=== PATIENT | female | born 1990 | race Caucasian/White ===

== ENCOUNTER 2020-04-13 21:18 | Emergency (ER) | payer OTHER, SELFPAY ==
[2020-04-13 21:24] VITALS: BP 163/101; PULSE 87; RESP 18; TEMP 36.3; O2SAT 98; BMI 57.6
[2020-04-13 21:58] LABS: Basophils # 0.1 10^3/uL (0.0-0.1); Basophils % 0.4 %; Eosinophils # 0.3 10^3/uL (0.0-0.8); Eosinophils % 2.2 %; Hematocrit 41.9 % (37.0-47.0); Hemoglobin 13.8 g/dL (11.5-15.3); Lymphocytes % 25.6 %; Mean Corpuscular HGB Conc 32.9 g/dL (30.0-36.0); Mean Corpuscular Hemoglobin 29.7 pg (28.0-34.0); Mean Corpuscular Volume 90.1 fL (81-99); Mean Platelet Volume 9.5 fL (7.4-10.4); Monocytes # 0.9 10^3/uL (0.2-0.9); Monocytes % 7.4 %; Neutrophils # 7.5 10^3/uL (1.8-7.7); Neutrophils % 63.9 %; Nucleated Red Blood Cells % 0 %; Platelet Count 367 10^3/cmm (130-400); Red Blood Count 4.65 10^6/uL (4.1-5.3); Red Cell Distribution Width 11.4 % (12.1-15.1); White Blood Count 11.7 10^3/uL (4.0-10.0)
[2020-04-13 22:11] LABS: Alanine Aminotransferase 18 U/L (0-33); Albumin Level 4.3 g/dL (3.5-5.2); Alkaline Phosphatase 57 IU/L (35-105); Anion Gap 18.9 (5-19); Aspartate Amino Transferase 22 U/L (0-32); Blood Urea Nitrogen 10 mg/dL (6-20); Calcium 10.3 mg/dL (8.5-10.5); Carbon Dioxide 22 mmol/L (22-29); Chloride 103 mmol/L (98-107); Globulin 3.3 g/dL (1.3-4.6); Glucose 119 mg/dL (65-115); Lipase 29 U/L (13-60); Osmolality Calculated 287 mOsm/kg (285-295); Potassium 3.9 mmol/L (3.5-5.1); Sodium 140 mmol/L (136-145); Total Bilirubin 0.2 mg/dL (0.15-1.2); Total Protein 7.6 g/dL (6.6-8.7)
[2020-04-13 22:23] LABS: HCG, Serum Qual Negative (Negative)
[2020-04-14 01:35] VITALS: BP 159/80; PULSE 77; RESP 18; O2SAT 98
[2020-04-14 01:44] LABS: Add Urine Microscopic? YES; Bacteria Urine 2+; Bilirubin Urine Neg (NEGATIVE); Blood Urine 2+ (Negative); Glucose Urine UA Norm (Normal); Ketones Urine Negative (Negative); Leukocyte Esterase Urine Negative (Negative); Nitrate Urine Negative (Negative); Protein Urine Neg (Negative); RBC Urine 0-4 /hpf (0-2); Urine Appearance SL Hazy (CLEAR); Urine Color Yellow (Yellow); Urobilinogen Urine Norm (Negative); WBC Urine 0-4 /hpf (0-5); pH Urine 5 (5-7)
[2020-04-14 01:45] LABS: Add Urine Culture? Yes; Mucus Urine 1+
--- NOTE | 2020-04-14 02:07 | CTR_ITS ---
PROCEDURE INFORMATION: Exam: CT Abdomen And Pelvis Without Contrast Exam date and time: 04/14/2020 2:18 AM Age: 29 years old Clinical indication: Abdominal pain; Flank; Left; Additional info: Flank pain TECHNIQUE: Imaging protocol: Computed tomography of the abdomen and pelvis without contrast. Radiation optimization: All CT scans at this facility use at least one of these dose optimization techniques: automated exposure control; mA and/or kV adjustment per patient size (includes targeted exams where dose is matched to clinical indication); or iterative reconstruction. COMPARISON: No relevant prior studies available. RADIATION DOSE METRICS: Total DLP: 2012.37 mGy-cm FINDINGS: Liver: Normal. No mass. Gallbladder and bile ducts: Status post cholecystectomy. Pancreas: Normal. No ductal dilation. Spleen: Normal. No splenomegaly. Adrenals: Normal. No mass. Kidneys and ureters: There is a punctate nonobstructing left renal calculus seen in the upper pole. There is a 3.4 mm minimally obstructing distal left ureteral calculus seen at the level of the ureterovesical junction. Stomach and bowel: Unremarkable. No obstruction. No mucosal thickening. Appendix: The appendix is visualized and is normal in configuration. Intraperitoneal space: Unremarkable. No free air. No significant fluid collection. Vasculature: Unremarkable. No abdominal aortic aneurysm. Lymph nodes: Unremarkable. No enlarged lymph nodes. Bladder: Unremarkable as visualized. Reproductive: Unremarkable as visualized. Bones/joints: Unremarkable. No acute fracture. Soft tissues: Unremarkable. CT/CT kidney stone [id number] IMPRESSION: 1. Minimally obstructing 3.4 mm calculus at the level of the left ureterovesical junction. 2. Punctate nonobstructing left renal calculus Radiation Dose CTDIVOL = (mGy): DLP = 2012.37 (mGy-cm)
[2020-04-14] MEDS: sodium chloride 0.9% 1,000 ML 999 ML IV (02:58)
[2020-04-14] MEDS: ondansetron 2 mg/ML SDV 2 mL 4 MG IVP (02:58)
[2020-04-14 02:59] VITALS: RESP 18; O2SAT 99
[2020-04-14] MEDS: HYDROmorphone 1 mg/mL INJ 1 mL IVP (02:59)
[2020-04-14 03:28] VITALS: BP 135/87; PULSE 78; RESP 18; O2SAT 98
[2020-04-14 04:03] VITALS: BP 142/100; PULSE 74; RESP 18; O2SAT 97
--- NOTE | 2020-04-14 17:18 | ED_ITS ---
HPI - Abdominal Pain General: Chief Complaint: Abdominal Pain Stated Complaint: l side back and abd pain Time Seen by Provider: 04/14/20 02:06 History of Present Illness: HPI narrative: 29-year-old healthy female presents with left-sided flank pain and abdominal pain that started today. She has been nauseated. The pain keeps getting worse she says. It comes and goes to some degree, but is mostly constant. Denies fever. Noticed that her urine looks a little more yellow . No adriana blood MD elicited complaint: abdominal pain and flank pain Pertinent past history: none Onset (ago): hour(s) Pain Consistency: constant Location: L flank and Suprapubic Severity: moderate Quality: stabbing and aching Radiation: LLQ, suprapubic and L flank Migration to: no migration Exacerbating factors: movement Relieving factors: nothing Associated Symptoms: Reports nausea; Denies diarrhea, fever(s), hematuria, loose stools and vomiting Related Data: Date of Last Menstrual Period: 04/02/20 Review of Systems Const: Denies: fever(s) Eyes: Denies: change in vision or blurry vision ENMT: Denies: swelling of lips/tongue, change in hearing, epistaxis, post nasal drip or sinus pain Card: Denies: chest pain, palpitations, irregular heart rhythm or swelling of feet/ankles Resp: Denies: dyspnea, productive cough, non-productive cough or wheezing GI: Reports: nausea; Denies: vomiting or diarrhea : Denies: hematuria Musc: Denies: neck pain, back pain or joint warmth Skin/Breast: Denies: rash, pruritus or erythema Neuro: Denies: headache(s), dizziness or vertigo Psych: Denies: anxiety PFSH ED PFSH: Social History Smoking and tobacco status: never smoked Female Reproductive History: Date of last menstrual period: 04/02/20 : 0 Physical Exam Const: GENERAL APPEARANCE: well developed ORIENTATION/CONSCIOUSNESS: Yes oriented to person, Yes oriented to place and Yes oriented to time HENMT: COMMON NORMALS: normocephalic, external ears normal and Normal external nose present HEAD & SCALP: normocephalic FACE & SINUS: normal facial exam NOSE: Normal external nose present and No nasal discharge present EXTERNAL EAR: Yes external ears normal MOUTH: tongue normal Eye: COMMON NORMALS: Equal, round and reactive pupils present, EOMs intact bilaterally and conjunctivae normal EYELID: eyelids normal CONJUNCTIVA: Yes conjunctivae normal PUPIL: Yes Equal, round and reactive pupils present Neck/C-Spine: GENERAL: No tracheal deviation Chest: COMMONS NORMALS: normal inspection of the chest CHEST: No tenderness Resp: COMMON NORMALS: clear to auscultation bilaterally EFFORT & INSPECTION: No tachypneic, No respiratory distress, No retractions, No uses accessory muscles and No tracheal deviation AUSCULTATION: clear to auscultation bilaterally, no rhonchi, no wheezes and lung sounds not diminished Cardio: COMMON NORMALS: regular rate and regular rhythm RATE: regular rate RHYTHM: regular rhythm HEART SOUNDS: no murmurs PERIPHERAL PULSES: radial pulses present GI: INSPECTION: No abdominal distension AUSCULTATION: No Hyperactive bowel sounds present and No Hypoactive bowel sounds present PALPATION: Yes Tenderness to palpation present (GI) (Left flank) Details: LLQ, No Guarding due to palpation present (GI) and No Rigid due to palpation PERCUSSION: no dullness to percussion and no tympanic to percussion : BLADDER/KIDNEY EXAM: Yes CVA tenderness on the left Back/Pelvis: GENERAL BACK: Yes CVA tenderness Neuro: SENSORIUM/ORIENTATION: Yes oriented to person, Yes oriented to place and Yes oriented to time Psych: COMMON NORMALS: mental status grossly normal Skin: COMMON NORMALS: no rashes or lesions noted GENERAL SKIN EXAM: no rashes or lesions noted Course Vital Signs: Vital signs: Vital Signs Temperature 97.4 F L 04/13/20 21:24 Pulse Rate 74 04/14/20 04:03 Respiratory Rate 18 04/14/20 04:03 Blood Pressure 142/100 04/14/20 04:03 Pulse Oximetry 97 04/14/20 04:03 MDM - Abdominal Pain MDM Narrative: Medical decision making narrative: White count mildly elevated. No evidence of urinary tract infection. She does have a 3.4 mm minimally obstructive stone in the left UVJ. Her pain is significantly improved. She will be treated with pain medication and antiemetics with lots of fluids. Close outpatient follow-up. Lab Data: Labs: Lab Results 04/13/20 04/13/20 04/13/20 Range/Units 21:15 21:15 21:15 WBC 11.7 H (4.0-10.0) 10^3/ uL RBC 4.65 (4.1-5.3) 10^6/u L Hgb 13.8 (11.5-15.3) g/dL Hct 41.9 (37.0-47.0) % MCV 90.1 (81-99) fL MCH 29.7 (28.0-34.0) pg MCHC 32.9 (30.0-36.0) g/dL RDW 11.4 L (12.1-15.1) % Plt Count 367 (130-400) 10^3/c mm MPV 9.5 (7.4-10.4) fL Neut % (Auto) 63.9 % Lymph % (Auto) 25.6 % Petroleum % (Auto) 7.4 % Eos % (Auto) 2.2 % Baso % (Auto) 0.4 % Neut # (Auto) 7.5 (1.8-7.7) 10^3/u L Lymph # (Auto) 3.0 (0.8-4.8) 10^3/u L Petroleum # (Auto) 0.9 (0.2-0.9) 10^3/u L Eos # (Auto) 0.3 (0.0-0.8) 10^3/u L Baso # (Auto) 0.1 (0.0-0.1) 10^3/u L Nucleated RBC % (a uto) 0 % Nucleated RBCs # 0.0 /100WBC Sodium 140 (136-145) mmol/L Potassium 3.9 (3.5-5.1) mmol/L Chloride 103 (98-107) mmol/L Carbon Dioxide 22 (22-29) mmol/L Anion Gap 18.9 (5-19) BUN 10 (6-20) mg/dL Creatinine 0.6 (0.5-0.9) mg/dL GFR Calculation 119.0 (90-130) mL/min Glucose 119 H (65-115) mg/dL Calculated Osmolal ity 287 (285-295) mOsm/k g Calcium 10.3 (8.5-10.5) mg/dL Total Bilirubin 0.2 (0.15-1.2) mg/dL AST 22 (0-32) U/L ALT 18 (0-33) U/L Alkaline Phosphata se 57 (35-105) IU/L Total Protein 7.6 (6.6-8.7) g/dL Albumin 4.3 (3.5-5.2) g/dL Globulin 3.3 (1.3-4.6) g/dL Lipase 29 (13-60) U/L HCG, Qual Negative (Negative) Urine Color (Yellow) Urine Appearance (CLEAR) Urine pH (5-7) Ur Specific Gravit y (1.005-1.030) Urine Protein (Negative) Urine Glucose (UA) (Normal) Urine Ketones (Negative) Urine Blood (Negative) Urine Nitrate (Negative) Urine Bilirubin (NEGATIVE) Urine Urobilinogen (Negative) mg/dL Ur Leukocyte Jenelle ase (Negative) Urine RBC (0-2) /hpf Urine WBC (0-5) /hpf Ur Squamous Epith Cells (0-5) Urine Bacteria (NONE) Urine Mucus 04/14/20 Range/Units 01:32 WBC (4.0-10.0) 10^3/ uL RBC (4.1-5.3) 10^6/u L Hgb (11.5-15.3) g/dL Hct (37.0-47.0) % MCV (81-99) fL MCH (28.0-34.0) pg MCHC (30.0-36.0) g/dL RDW (12.1-15.1) % Plt Count (130-400) 10^3/c mm MPV (7.4-10.4) fL Neut % (Auto) % Lymph % (Auto) % Petroleum % (Auto) % Eos % (Auto) % Baso % (Auto) % Neut # (Auto) (1.8-7.7) 10^3/u L Lymph # (Auto) (0.8-4.8) 10^3/u L Petroleum # (Auto) (0.2-0.9) 10^3/u L Eos # (Auto) (0.0-0.8) 10^3/u L Baso # (Auto) (0.0-0.1) 10^3/u L Nucleated RBC % (a uto) % Nucleated RBCs # /100WBC Sodium (136-145) mmol/L Potassium (3.5-5.1) mmol/L Chloride (98-107) mmol/L Carbon Dioxide (22-29) mmol/L Anion Gap (5-19) BUN (6-20) mg/dL Creatinine (0.5-0.9) mg/dL GFR Calculation (90-130) mL/min Glucose (65-115) mg/dL Calculated Osmolal ity (285-295) mOsm/k g Calcium (8.5-10.5) mg/dL Total Bilirubin (0.15-1.2) mg/dL AST (0-32) U/L ALT (0-33) U/L Alkaline Phosphata se (35-105) IU/L Total Protein (6.6-8.7) g/dL Albumin (3.5-5.2) g/dL Globulin (1.3-4.6) g/dL Lipase (13-60) U/L HCG, Qual (Negative) Urine Color Yellow (Yellow) Urine Appearance Sl hazy (CLEAR) Urine pH 5 (5-7) Ur Specific Gravit y 1.030 (1.005-1.030) Urine Protein Neg (Negative) Urine Glucose (UA) Norm (Normal) Urine Ketones Negative (Negative) Urine Blood 2+ H (Negative) Urine Nitrate Negative (Negative) Urine Bilirubin Neg (NEGATIVE) Urine Urobilinogen Norm (Negative) mg/dL Ur Leukocyte Jenelle ase Negative (Negative) Urine RBC 0-4 H (0-2) /hpf Urine WBC 0-4 H (0-5) /hpf Ur Squamous Epith Cells 10-15 H (0-5) Urine Bacteria 2+ H (NONE) Urine Mucus 1+ Discharge Plan Discharge Patient Disposition: Home, Self-Care Clinical Impression: Ureterolithiasis Condition: Stable Prescriptions: New Percocet 7.5-325 mg tablet 1 tab PO Q6H PRN (Reason: pain) Qty: 14 RF: 0 Zofran 4 mg tablet 4 mg PO Q6H PRN (Reason: nausea and vomiting) Qty: 10 RF: 0 Discharge Orders: Discharge Order (Routine); Ordered 04/14/20 Ordered By: Yohannes Brown Referrals: Serjio Willingham MD [Physician] - 4-7 days Jaelyn Gregory FNP [Primary Care Provider] - 4-7 days Discharge Diet: Advance as tolerated Discharge Activity: Increase activity as tolerated Patient Instructions: Kidney Stones (ED) Activity Restrictions/Additional Instructions: Return for fever greater than 100, worsening pain despite treatment, vomiting liquids or medications, other concerning symptoms. Discharge Date/Time: 04/14/20 04:05 Coding Level of Care Code ED Photoengraving Apprentice for Martín Swan
--- NOTE | 2020-04-16 14:36 | DCPLANNER ---
assistant office manager had message to schedule a follow up appointment for patient with Dr. Willingham. assistant office manager called the office of Dr. Willingham, spoke with Salena, gave clinic patients information. assistant office manager was told that patients information would be printed and reviewed. Clinic will call patient with appointment information.
--- NOTE | 2020-04-17 08:24 | DCPLANNER ---
Patient has a follow up appointment scheduled for Friday, April 17, 2020 at 2:[address] Willingham. Clinic will call patient with appointment information.
--- NOTE | 2020-04-27 14:07 | DCPLANNER ---
Patient had an appointment scheduled for 04.17.[address] Willingham. Patient did attend the appointment.
== END 2020-04-14 04:05 | disposition home or self-care (01) ==
PROVIDERS: Physician Assistant; Emergency Provider Emergency Medicine; PCP Nurse Practitioner
DX: N20.1 Calculus of ureter (principal)
CPT/HCPCS: 12345; 74176; 80053; 81001; 83690; 84703; 85025; 87086; 96361; 96374; 96375; 99283; J1170; J2405; J7030

== ENCOUNTER 2020-04-17 13:09 | Outpatient (CLI) | payer OTHER, SELFPAY ==
--- NOTE | 2020-04-17 13:16 | XR_ITS ---
WS: [id number] XR KUB [id number] REASON FOR EXAM: ureteral calculus FINDINGS: No evidence of renal parenchymal calcification. The ureter areas and bladder show no definite signs of calcification. Nonspecific abdominal findings. XR/XR KUB [id number] IMPRESSION: No ureteral calculi are seen by radiographic means.
== END 2020-04-17 13:10 | disposition home or self-care (01) ==
LOC: RAD 13:13
PROVIDERS: PCP Nurse Practitioner; Visit Provider Urology
DX: N20.1 Calculus of ureter (principal)
CPT/HCPCS: 74018; 81001

== ENCOUNTER 2020-04-25 12:53 | Outpatient (CLI) | payer OTHER, SELFPAY ==
--- NOTE | 2020-04-25 13:00 | XRR_ITS ---
PROCEDURE INFORMATION: Exam: XR Abdomen, 1 View Exam date and time: 04/25/2020 1:29 PM Age: 29 years old Clinical indication: Condition or disease; Kidney or ureter condition; Calculus (stone) in kidney; Additional info: Stones TECHNIQUE: Imaging protocol: XR of the abdomen. Views: Frontal supine view of the abdomen. 1 View. COMPARISON: CT kidney stone [id number] 04/14/2020 2:27 AM FINDINGS: Gastrointestinal tract: Normal. No bowel dilation. There is scattered colonic fecal stasis is seen. Bones/joints: Unremarkable. Negative for urinary tract stones XR/XR KUB [id number] IMPRESSION: No acute findings.
== END 2020-04-25 12:54 | disposition home or self-care (01) ==
LOC: RAD 12:55
PROVIDERS: PCP Nurse Practitioner; Visit Provider Urology
DX: N20.0 Calculus of kidney (principal)
CPT/HCPCS: 74018; 81001

== ENCOUNTER 2020-05-02 14:02 | Outpatient (CLI) | payer OTHER, SELFPAY ==
--- NOTE | 2020-05-02 14:15 | XRR_ITS ---
PROCEDURE INFORMATION: Exam: XR Abdomen, 1 View Exam date and time: 05/02/2020 2:19 PM Age: 29 years old Clinical indication: Condition or disease; Kidney or ureter condition; Calculus (stone) in ureter; Additional info: Stone lt ureter f/u TECHNIQUE: Imaging protocol: XR of the abdomen. Views: Frontal supine view of the abdomen. 1 View. COMPARISON: CR XR KUB [id number] 04/25/2020 1:26 PM and 04/14/2020 CT abdomen/pelvis. FINDINGS: Gastrointestinal tract: Normal. No bowel dilation. Organs: Suspect a persistent small 2-3 mm left UVJ region stone, unchanged from prior 04/14/2020 CT scan. Bones/joints: Unremarkable. XR/XR KUB [id number] IMPRESSION: Suspect a persistent small 2-3 mm left UVJ region stone, unchanged from prior 04/14/2020 CT scan.
== END 2020-05-02 14:03 | disposition home or self-care (01) ==
LOC: RAD 14:05
PROVIDERS: PCP Nurse Practitioner; Visit Provider Urology
DX: N20.1 Calculus of ureter (principal)
CPT/HCPCS: 74018

== ENCOUNTER 2020-05-03 11:00 | Day surgery (SDC) | payer OTHER, SELFPAY ==
[2020-05-02 15:59] VITALS: BMI 45.3
[2020-05-02 16:06] VITALS: BMI 45.3
[2020-05-03] VITALS (11 sets, daily range): BP systolic 113–156; BP diastolic 58–85; PULSE 63–88; RESP 18; TEMP 36.9–37; O2SAT 96–100
--- NOTE | 2020-05-03 | SCC_ITS ---
Procedure Done: 1. Cystoscopy, left retrograde ureteropyelogram 2. Left ureteroscopy stent placement 14.4 seconds of fluoroscopic guidance, for a cumulative dose of 5.75 mGy, was provided to Dr. Willingham by the radiology department. C-arm images of the abdomen were saved for the patient's permanent record. [facility]
--- NOTE | 2020-05-03 11:11 | SC_ITS ---
WS: [id number] INTRAOPERATIVE TECHNIQUE: 5 Spot fluoroscopic images for intraoperative purposes. FLUOROSCOPY TIME: 14.4 seconds CLINICAL INFORMATION: Left ureteral calculus COMPARISON: None. FINDINGS: Retrograde ureteroscopy with deployment of left double-J ureteral stent. SC/C-arm FL for Urology IMPRESSION: Images obtained for intraoperative purposes.
[2020-05-03] MEDS: sodium chloride 0.9% 1,000 ML 30 ML IV (11:26)
--- NOTE | 2020-05-03 11:26 | ANES.PREANE2 ---
Pre-Anesthetic Assessment Pre-Anesthetic Assessment: Height/Weight: Height 1.57 m Weight 112.491 kg Temp Pulse Resp BP Pulse Ox 98.5 F 84 18 156/74 97 05/03/20 11:15 05/03/20 11:15 05/03/20 11:15 05/03/20 11:15 05/03/20 11:15 Preop Diagnosis: Refractory left distal ureteral symptomatic stone Proposed Procedure: Operation Date: 05/03/20 12:20 Proposed Procedures p Cystoscopy 24789 30128 N20.9(Not Applicable) - Serjio Willingham MD s Retrograde Pyelogram(Left) - Serjio Willingham MD s Flexible Ureteroscopy(Not Applicable) - MD rogerio Cooper Laser Lithotripsy(Not Applicable) - Serjio Willingham MD s Ureteral Stent Placement(Not Applicable) - Serjio Willingham MD Familial anesthetic complications: none Was Beta Celena taken within 24 hours: N/A Last intake: Intake Last Liquid Date 05/03/20 Last Liquid Time 06:50 Last Solid Date 05/02/20 Social: Social History: No alcohol and No tobacco Exam: Pre-Anes Outpt Exam: alert, oriented x 3, clear to auscultation bilaterally and regular rate & rhythm Airway: Cervical ROM: WNL MP: 2 Dentition: Full Pulmonary: Pulmonary: None reported CV/HEM: CV/HEM: None reported : : None reported Hepatic: Hepatic: None reported GI: GI: None reported Metabolic: Metabolic: Morbid obesity Musc/skel: Musc/skel: None reported Neuropsych: Neuropsych: None reported Anesthetic Plan: ASA status: 1 Anesthesia: General Risk of > 500 ml blood loss (7ml/kg in children): No PFSH Anesthesia PFSH: Medical History (Updated 05/02/20 @ 15:47 by Serjio Willingham MD) Flank pain Left ureteral calculus Urolithiasis Surgical History History of tonsillectomy and adenoidectomy Hx of cholecystectomy Family History Other Diabetes Social History Smoking and tobacco status: never smoked Alcohol intake: current Alcohol intake frequency: holidays/special occasions only Adopted: No Caregiver/support person: No Lives independently: Yes Marital status: Single Current occupational status: employed History of recent travel: No Current gender identity: Female Female Reproductive History: Date of last menstrual period: 04/02/20 Data Anesthesia Cardiac Studies: No Data to Display
--- NOTE | 2020-05-03 12:46 | P.HPUD_ITS ---
Surgery/Procedure H&P Update DATE OF PROCEDURE: May 03, 2020 DATE H&P PERFORMED: 05/02/20 H&P UPDATE INFORMATION: I have reviewed H&P completed within last 30 days, No changes to prior documentation and H&P is in [facility] EMR on date indicated PREOP DIAGNOSIS: Refractory left distal ureteral symptomatic stone PLANNED PROCEDURE: Operation Date: 05/03/20 12:20 Proposed Procedures p Cystoscopy 51763 59160 N20.9(Not Applicable) - MD rogerio Cooper Retrograde Pyelogram(Left) - MD rogerio Cooper Flexible Ureteroscopy(Not Applicable) - MD rogerio Cooper Laser Lithotripsy(Not Applicable) - MD rogerio Cooper Ureteral Stent Placement(Not Applicable) - Serjio Willingham MD
--- NOTE | 2020-05-03 12:47 | PM.OP ---
Operative Report Date of procedure: May 03, 2020 Pre-op Diagnosis: Refractory left distal ureteral symptomatic stone Associated Problem List Diagnoses (1) Flank pain: (2) Left ureteral calculus:
[2020-05-03] MEDS: levofloxacin-dextrose 5 % 500 MG/100 ML PREMIX 100 MG IV (12:56)
[2020-05-03 12:58] LABS: OR HCG Qualitative Urine Negative (Negative)
[2020-05-03] MEDS: iohexol 300 mg/mL 50 mL Btl (OR ONLY) XX (13:27)
--- NOTE | 2020-05-03 13:37 | P.OP_ITS ---
Operative Report Date of procedure: May 03, 2020 Pre-op Diagnosis: Refractory left distal ureteral symptomatic stone Post-op Diagnosis: Spontaneous passage of the left distal ureteral stone Procedure Done: 1. Cystoscopy, left retrograde ureteropyelogram 2. Left ureteroscopy stent placement Implants: 4.7 x 26 cm double-pigtail stent with string Specimens removed/disposition: None Pathology: none sent Surgeon: Maulik Anesthesia: General Estimated blood loss: Minimal Urine output: Not measured Complications: None Findings: 1. The stone had spontaneously passed. 2. The left ureteral orifice intramural tunnel were significantly inflamed when compared to the right side. The distal ureter was very inflamed upon inspection and the ureter just proximal to the intramural tunnel was dilated all the way to the kidney. Condition: stable Disposition: PACU Brief History: Bailee is a delightful 29-year-old white female recently conner gnosed several weeks ago with a left distal ureteral stone with obstructive changes and moderate symptomatology. The stone was located at the UVJ and it was felt to be a really good candidate for spontaneous passage with conservative therapy and therefore she was managed with pain medication, Flomax, time and fluids. On follow-up KUB there was a calcification suspicious for the location of the st one that was persistent. There was a hint on 1 image and the sequence of images of possible slight distal migration but it was never beyond that point. She continued to have intermittent left renal colic even as of yesterday and had significant lower urinary tract symptoms consistent with irritation related to stone in the intramural tunnel. While it was felt that the stone would pass because of the persistence and the persistence of her symptoms as well as an impending vacation she elected to proceed with endoscopy. She was diligent in straining her urine. Procedure: After routine preoperative evaluation examination and obtaining of informed consent she was taken to the operating suite on 05/03/2020 where general anesthesia was administered without difficulty after appropriate timeout was performed, SCDs confirmed to be functioning, preoperative antibiotics administered, beta-benjamin protocol confirmed. Prepped and draped in usual sterile fashion in dorsolithotomy position pain careful attention to avoiding pressure points. The 21 Moldovan cystoscope with 30 degree lens was introduced into the urethral meatus and advanced into the bladder under videoscopy. The bladder was systematically examined. No stone was seen. The bladder was carefully inspected and there was a dramatic difference between the right ureteral orifice and intramural tunnel in the left. The left showed significant inflammatory changes with heaped mucosa consistent with intramural process and consistent with location of the left distal ureteral stone for extended period of time. An 8 Moldovan cone-tipped catheter was intubated to the left ureteral orifice and a left retrograde ureteropyelogram was performed showing narrowing of the ureter in the intramural tunnel and proximal to that moderate dilation extending to the proximal ureter. No clear-cut filling defect could be identified at the transition from narrow to dilated. A flexible tip guidewire was then easily advanced up the left ureter under fluoroscopic monitoring. No stone was seen. The wire passed into the area of the renal pelvis without difficulty. The distal ureter was then dilated with a 15 Moldovan 4 cm balloon with no waist at 4 sharda of pressure. Wire secured to the drapes as a safety wire and a 7.5 Moldovan offset semirigid ureteroscope was then advanced next to the wire up the ureter. The distal ureter was significantly inflamed and the ureter proximal to that was moderately dilated. No stone was identified. The scope was passed all the way to the UPJ and again no stone was seen. Scope was passed twice and inspected on withdrawal both times. The distal ureter was carefully inspected to make sure there was no intramural transmigration of the stone. After careful evaluation of the ureter it was determined that the stone had spontaneously passed. The bladder was reinspected and again no stone was seen. Cystoscope was then backloaded over the guidewire and a 4.7 x 26 cm double- pigtail stent with string attached distally was passed without difficulty over the guidewire through the cystoscope into appropriate position as confirmed via fluoroscopy and cystoscopy. Stent was draining urine. Bladder was drained and the procedure completed. She tolerated procedure well without complications and was awakened in the operating room and returned to the recovery in stable condition. PLANS: 1. Maintain stent for passive dilation of the dilated distal ureter over the weekend. Since she has a string she can withdraw the stent herself on Thursday morning and let us know how things go.
[2020-05-03] MEDS: fentaNYL 50 mcg/mL INJ 2mL IVP (13:57)
[2020-05-03] MEDS: ondansetron 2 mg/ML SDV 2 mL 4 MG IVP (14:02)
--- NOTE | 2020-05-03 14:04 | SUR.PHASEI ---
PT HAD SUDDEN ONSET OF SEVERE RT RIB PAIN NOT ALLIEVEATED WITH CHANGE OF POSITION, PT C/O OF NAUSEA WITH PAIN AND DIAPHORETIC, SEE MEDS GIVEN EARLIER PT NOW BETTER, NAUSEA BETTER, PAIN BETTER AT 3
== END 2020-05-03 15:22 | disposition home or self-care (01) ==
PROVIDERS: Anesthesiology; PCP Nurse Practitioner; Visit Provider Urology
PROC: 0TJB8ZZ Inspection of Bladder, Via Natural or Artificial Opening Endoscopic (ICD-10-PCS; CPT 52000; principal; 2020-05-03 12:00)
PROC: (CPT 74420; 2020-05-03 12:00)
PROC: 0TJ98ZZ Inspection of Ureter, Via Natural or Artificial Opening Endoscopic (ICD-10-PCS; CPT 52351; 2020-05-03 12:00)
PROC: (CPT 50605; 2020-05-03 12:00)
DX: N20.1 Calculus of ureter (principal); E66.01 Morbid (severe) obesity due to excess calories; Z68.42 Body mass index [BMI] 45.0-49.9, adult
CPT/HCPCS: 52332; 52351; 12345; 76000; 81025; 84703; 96365; C1725; C2625; J1100; J1956; J2001; J2405; J2704; J2710; J3010; J3490; J7030

== ENCOUNTER 2020-05-22 07:06 | Outpatient (CLI) | payer OTHER, SELFPAY ==
--- NOTE | 2020-05-22 07:18 | XRR_ITS ---
PROCEDURE INFORMATION: Exam: XR Abdomen, 1 View Exam date and time: 05/22/2020 7:27 AM Age: 29 years old Clinical indication: Condition or disease; Kidney or ureter condition; Calculus (stone) in ureter; Prior surgery; Surgery date: <1 month; Surgery type: Renal stent; Patient HX: Follow up ureteral calculus. Previous c-arm 05/03/20 , XR 05/02/20 TECHNIQUE: Imaging protocol: XR of the abdomen. Views: Frontal supine view of the abdomen. 1 View. COMPARISON: CR XR KUB [id number] 05/02/2020 2:16 PM FINDINGS: Gastrointestinal tract: Obscuration of the renal fossa by prominent bowel gas and stool. Colonic dilatation and prominent stool. Intraperitoneal space: Incomplete visualization of the superior most abdomen. Bones/joints: No acute osseous pathology. Other findings: If underlying urolithiasis is of clinical concern, CT may be of benefit for further evaluation. XR/XR KUB [id number] IMPRESSION: Colonic dilatation and prominent stool.
== END 2020-05-22 07:07 | disposition home or self-care (01) ==
PROVIDERS: PCP Nurse Practitioner; Visit Provider Urology
DX: N20.1 Calculus of ureter (principal)
CPT/HCPCS: 74018; 81001

== ENCOUNTER → 2021-07-09 08:13 | Outpatient (BNVA) | payer OTHER, SELFPAY | PROVIDERS: PCP Nurse Practitioner; Visit Provider Nurse Practitioner Family | DX: Z20.822 Contact with and (suspected) exposure to COVID-19 (principal) | CPT/HCPCS: 87635; 87880 ==

== ENCOUNTER 2021-07-30 11:44 | Outpatient (CLI) | payer OTHER, SELFPAY ==
--- NOTE | 2021-07-30 12:00 | XR_ITS ---
WS: [id number] Exam: XR KUB [id number] Date/Time of Exam: 07/30/2021 12:00 PM Reason For Exam: UROLITHIASIS No bowel obstruction or free air noted. No sign of organ enlargement. No obvious calcifications seen in the region of the renal silhouettes. Moderate amount stool in the colon. Regional bony elements ar e intact. XR/XR KUB [id number] IMPRESSION: 1. No acute abdominal finding. Moderate amount retained stool.
== END 2021-07-30 11:45 | disposition home or self-care (01) ==
PROVIDERS: PCP Nurse Practitioner; Visit Provider Urology
DX: N20.9 Urinary calculus, unspecified (principal)
CPT/HCPCS: 74018; 81003

== ENCOUNTER 2022-04-01 09:54 | Outpatient (CLI) | payer OTHER, SELFPAY ==
--- NOTE | 2022-04-01 | XR_ITS ---
WS: [id number] Lumbar spine, 3 views, 04/01/2022 Clinical Data: CHRONIC BILATERAL LOW BACK PAIN Comparison: None. Findings: No compression fractures or subluxation is seen. No disc space narrowing is seen. The transverse proc esses and SI joints are normal. XR/XR lumbar spine 2-3V* [id number] Impression: Negative lumbar spine.
== END 2022-04-01 09:55 | disposition home or self-care (01) ==
LOC: RADOUTREAD 04-02 09:57
PROVIDERS: PCP Nurse Practitioner; Visit Provider Nurse Practitioner Family
DX: M54.42 Lumbago with sciatica, left side (principal); M54.41 Lumbago with sciatica, right side
CPT/HCPCS: 72100

== ENCOUNTER → 2022-06-11 09:52 | Outpatient (BNVA) | payer OTHER, SELFPAY | PROVIDERS: PCP Nurse Practitioner; Visit Provider Emergency Medicine | DX: R68.89 Other general symptoms and signs (principal); J06.9 Acute upper respiratory infection, unspecified; H66.90 Otitis media, unspecified, unspecified ear; J02.9 Acute pharyngitis, unspecified; J00 Acute nasopharyngitis [common cold]; H65.03 Acute serous otitis media, bilateral; I10 Essential (primary) hypertension | CPT/HCPCS: 87071; 87400; 87426; 87880 ==

== ENCOUNTER → 2022-06-20 17:32 | Outpatient (BNVA) | payer OTHER, SELFPAY | PROVIDERS: PCP Nurse Practitioner; Visit Provider Emergency Medicine | DX: R05.9 Cough, unspecified (principal) | CPT/HCPCS: 71046; 87426 ==

== ENCOUNTER → 2022-12-31 16:33 | Outpatient (BNVA) | payer OTHER, SELFPAY | PROVIDERS: Visit Provider Nurse Practitioner Family | DX: I10 Essential (primary) hypertension (principal) | CPT/HCPCS: 80053; 80061; 85025 ==

== ENCOUNTER → 2023-03-23 10:05 | Outpatient (BNVA) | payer OTHER, SELFPAY | PROVIDERS: Visit Provider Internal Medicine Cardiovascular Disease | DX: I10 Essential (primary) hypertension (principal); Z82.49 Family history of ischemic heart disease and other diseases of the circulatory system; E66.9 Obesity, unspecified; Z87.891 Personal history of nicotine dependence; Z68.42 Body mass index [BMI] 45.0-49.9, adult | CPT/HCPCS: 93005 ==

== ENCOUNTER 2023-04-14 08:26 | Outpatient (CLI) | payer OTHER, SELFPAY ==
--- NOTE | 2023-04-14 08:45 | USCV_ITS ---
Bailee Romano Age: 32 Gender: F : 1990 Exam Date: 04/14/2023 09:10 Ordering Phys: Amina Bullock MD ([email or web address]) Technologist: [place] [facility] [place]: HTN BP: 155 / 95 HR: 80 Rhythm: Sinus Technical Quality: Adequate MEASUREMENTS (Male / Female) Normal Values 2D ECHO LV Diastolic Diameter PLAX 4.3 cm 4.2 - 5.9 / 3.9 - 5.3 cm LV Systolic Diameter PLAX 2.5 cm IVS Diastolic Thickness 1.2 cm 0.6 - 1.0 / 0.6 - 0.9 cm IVS Systolic Thickness 1.8 cm LVPW Diastolic Thickness 1.2 cm 0.6 - 1.0 / 0.6 - 0.9 cm LVPW Systolic Thickness 1.5 cm LVOT Diameter 2.1 cm LV Ejection Fraction 2D Teich 71.7 % LV Ejection Fraction MOD 2C 68.3 % LV Ejection Fraction 2C AL 69.2 % LA Diameter 4.2 cm IVC Diameter 1.4 cm M-MODE Aortic Annulus Diameter 2.9 cm LA Ao Ratio MM 1.7 MV E Point Septal Separation 0.7 cm DOPPLER AV Peak Velocity 135.0 cm/s LVOT Peak Velocity 108.0 cm/s AV Area Cont Eq vti 2.6 cm squared AV Area Cont Eq pk 2.7 cm squared MV Area PHT 5.0 cm squared Mitral E to A Ratio 2.2 MV E' Velocity 58.0 cm/s Mitral E to MV E' Ratio 9.7 Mitral E to LV E' Lateral Ratio 8.0 Mitral E to LV E' Septal Ratio 12.4 TR Peak Velocity 100.3 cm/s TR Peak Gradient 4.0 mmHg TV Peak E Velocity 94.0 cm/s Right Atrial Pressure 3.0 mmHg Pulmonary Artery Systolic Pressu 7.0 mmHg RV Acceleration Time 0.2 s FINDINGS Left Ventricle Normal left ventricular size, systolic function and mildly increased wall thickness, with no regional wall motion abnormalities. Left ventricular ejection fraction is estimated at 65 %. Mild concentric left ventricular hypertrophy. Normal diastolic function. Right Ventricle Normal right ventricular size and systolic function. RVSP could not be calculated due to incomplete tricuspid regurgitation velocity profile. Right Atrium Normal right atrial size. Left Atrium Normal left atrial size. Mitral Valve Structurally normal mitral valve. No mitral valve stenosis. No mitral valve regurgitation. Aortic Valve Structurally normal trileaflet aortic valve. No aortic valve stenosis. No aortic valve regurgitation. Tricuspid Valve Structurally normal tricuspid valve. No tricuspid valve stenosis. Trace tricuspid valve regurgitation. Pulmonic Valve Pulmonic valve not well visualized. Pericardium No pericardial effusion. Aorta Normal size aortic root and proximal ascending aorta. IVC Normal IVC dimension with >50% respiratory change of the inferior vena cava. CONCLUSIONS 1. Normal left ventricular size, systolic function with no regional wall motion abnormalities. Left ventricular ejection fraction is estimated at 65 %. Mild concentric left ventricular hypertrophy. Normal diastolic function. 2. No significant valvular abnormality. 3. No Prior similar studies to compare. Amina Bullock MD (Electronically Signed) Final Date: 17 April 2023 10:39 S
== END 2023-04-14 08:27 | disposition home or self-care (01) ==
PROVIDERS: Visit Provider Internal Medicine Cardiovascular Disease
DX: R06.02 Shortness of breath (principal); I10 Essential (primary) hypertension; Z82.49 Family history of ischemic heart disease and other diseases of the circulatory system
CPT/HCPCS: 93306; 99203

== ENCOUNTER → 2023-04-20 12:37 | Outpatient (BNVA) | payer OTHER, SELFPAY | PROVIDERS: Visit Provider Nurse Practitioner Family | DX: I10 Essential (primary) hypertension (principal); Z87.891 Personal history of nicotine dependence | CPT/HCPCS: 99213 ==

== ENCOUNTER → 2023-07-20 15:06 | Outpatient (BNVA) | payer OTHER, SELFPAY | PROVIDERS: Visit Provider Internal Medicine Cardiovascular Disease | DX: I10 Essential (primary) hypertension (principal); E66.9 Obesity, unspecified; Z68.42 Body mass index [BMI] 45.0-49.9, adult; Z82.49 Family history of ischemic heart disease and other diseases of the circulatory system; Z87.891 Personal history of nicotine dependence | CPT/HCPCS: 99214 ==